=== PATIENT | male | born 1970 | race Caucasian/White ===

== ENCOUNTER 2019-10-19 00:42 | Observation (INO) | payer BC, OTHER, SELFPAY ==
[2019-10-19] VITALS (18 sets, daily range): BP systolic 103–144; BP diastolic 53–91; PULSE 78–115; RESP 15–25; TEMP 36.1–37.8; O2SAT 95–99; BMI 27.3
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
[2019-10-19] MEDS: SODIUM CHLORIDE 0.9% 1,000 ML 1000 ML IV (01:30)
[2019-10-19 01:43] LABS: Add Manual Diff / Slide Review NO; Basophils Absolute Auto 0 /uL (0-100); Basophils Percent Auto 0.2 % (0-2); Eosinophils Absolute Auto 0 /uL (0-450); Eosinophils Percent Auto 0.2 % (2-4); Hematocrit 50.2 % (41-53); Hemoglobin 17.2 g/dL (13.5-17.5); Lymphocytes Absolute Auto 1400 /uL (1100-4500); Lymphocytes Percent Auto 11.3 % (25-40); Mean Corpuscular HGB Conc 34.2 % (30-36); Mean Corpuscular Hemoglobin 31.4 PG (26-34); Mean Corpuscular Volume 91.8 fL (80-100); Monocytes Absolute Auto 700 /uL (0-900); Monocytes Percent Auto 5.8 % (3-14); Neutrophils Absolute Auto 10500 /uL (1500-7000); Neutrophils Percent Auto 82.5 % (50-75); Platelet Count 211 X10^3/uL (150-400); Red Blood Cell Count 5.47 X10^6/uL (4.5-5.9); Red Cell Distribution Width 12.8 % (11.6-14.8); White Blood Cell Count 12.7 X10^3/uL (4.5-11.0)
[2019-10-19 01:47] LABS: Prothrombin Time 11.4 SECONDS (10.1-12.7)
[2019-10-19 01:49] LABS: PTT Partial Thromboplastin Tim 33 SECONDS (26.4-36.2)
[2019-10-19 01:51] LABS: Alanine Aminotransferase 65 IU/L (<50); Albumin 4.7 g/dL (3.5-5.0); Albumin Globulin Ratio 1.5 (1.0-2.8); Alkaline Phosphatase 102 U/L (38-126); Aspartate Aminotransferase 78 IU/L (17-59); BUN Creatinine Ratio 12.8 (6-22); Bilirubin Total 0.5 mg/dL (0.2-1.3); Blood Urea Nitrogen 10 mg/dL (9-20); Calcium 9.1 mg/dL (8.4-10.2); Carbon Dioxide 17 mmol/L (22-32); Chloride 108 mmol/L (98-107); Creatine Kinase 913 U/L (55-170); Estimated Glomerular Filt Rate > 60.0 mL/min (>60); Globulin 3.1 g/dL (1.7-4.1); Glucose 99 mg/dL (70-100); HEMOLYSIS 18 (0-50); Potassium 4.2 mmol/L (3.4-5.1); Sodium 139 mmol/L (137-145); Total Protein 7.8 g/dL (6.3-8.2)
[2019-10-19 02:06] LABS: CKMB % Relative Index 0.6 % (1.5-5.0); Creatine Kinase MB 5.14 ng/mL (<2.37)
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
[2019-10-19 02:31] LABS: Troponin I 0.216 ng/mL (0.01-0.034)
[2019-10-19] MEDS: LACTATED RINGERS 1,000 ML 1000 ML IV (02:35)
[2019-10-19] MEDS: ASPIRIN 81 MG CHEW TAB 324 MG PO (02:52)
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
[2019-10-19 04:57] LABS: Troponin I 0.431 ng/mL (0.01-0.034)
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
[2019-10-19] MEDS: SODIUM CHLORIDE 0.9% 1,000 ML 75 ML IV (05:59)
[2019-10-19 06:30] LABS: COVID19 -Nasal RAPID Negative (Negative)
[2019-10-19] MEDS: ACETAMINOPHEN 325 MG TABLET 650 MG PO (06:36)
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
--- NOTE | 2019-10-19 10:18 | DI.ECHO.S_ITS ---
Echocardiogram Report + + :Name: SABAS PINEDA Study Date: 10/19/2019 Height: 69 in : :Hospital Weight: 185 lb : : Gender: Male BSA: 2.0 m2 : :: 1970 Age: 49 yrs BP: 144/84 mmHg: :Reason For Study: Elevated Troponin : :Ordering Physician: [place] : :Hospitalist Performed By: Delilah Kebede : :Referring: ELIE HE : + + Interpretation Summary The left ventricle is normal in size. The left ventricular ejection fraction is normal. Left ventricular wall motion is normal. Diastolic parameters suggest probable normal left ventricular diastolic function and normal filling pressures. The right ventricular systolic pressure is estimated to be at least 24 mmHg based on an estimated right atrial pressure of 3 mm Hg. No hemodynamically significant valvular abnormalities. No prior echocardiogram for comparison. Procedure: A two-dimensional transthoracic echocardiogram with color flow and Doppler was performed. The study quality was technically adequate. A contrast injection of Definity was performed to improve assessment of LV function. There is no prior echocardiogram noted for this patient. The patient was in normal sinus rhythm during the exam. Left Ventricle: The left ventricle is normal in size. Left ventricular wall thickness is at the upper limits of normal. There is no ventricular septal defect visualized. There is no thrombus. The ejection fraction is estimated to be 60-65%. The left ventricular ejection fraction is normal. Left ventricular wall motion is normal. Diastolic parameters suggest probable normal left ventricular diastolic function and normal filling pressures. Right Ventricle: The right ventricle is normal in size and function. Atria: Both atria are normal in size. There is no Doppler evidence for an interatrial shunt. Mitral Valve: The mitral valve is normal in structure and function. There is no mitral regurgitation noted. Aortic Valve: The aortic valve is normal in structure and function. No aortic regurgitation is present. Tricuspid Valve: The tricuspid valve is not well visualized, but is grossly normal. There is a trace or physiologic amount of tricuspid regurgitation. The right ventricular systolic pressure is estimated to be at least 24 mmHg based on an estimated right atrial pressure of 3 mm Hg. Pulmonic Valve: The pulmonic valve is not well visualized. Great Vessels: The aortic root is normal size. The ascending aorta is normal in size. The IVC is of normal diameter and collapses greater than 50% with a sniff. This suggests a low right atrial pressure of 3 mm Hg. Pericardium/ Pleura There is no pericardial effusion. MMode/2D Measurements & Calculations LVIDd: 4.4 cm LVOT diam: 2.2 cm LVIDs: 2.5 cm Ao root diam: 3.3 cm FS: 42.5 % asc Aorta Diam: 3.2 cm EPSS: 0.38 cm IVSd: 0.96 cm LVPWd: 0.95 cm LV aldridge. diameter/BSA (cm/m^2): 2.2 LV sys. diameter/BSA (cm/m^2): 1.3 LA A2 area: 19.2 cm2 RA long axis: 5.0 cm LA A4 area: 17.9 cm2 RA area: 15.3 cm2 LA length (vol): 5.3 cm RA vol: 39.7 ml LA vol: 55.5 ml RA : 19.8 ml/m2 LA vol index: 27.8 ml/m2 IVC diam: 2.0 cm RVD1 (basal): 3.6 cm TAPSE: 2.0 cm Doppler Measurements & Calculations Ao V2 max: 169.0 cm/sec LVOT Max Ti: 120.9 cm/sec Ao V2 mean: 124.1 cm/sec LV V1 max P.8 mmHg Ao max P.4 mmHg LV V1 VTI: 22.9 cm Ao mean P.6 mmHg GARY(I,D): 3.0 cm2 Ao V2 VTI: 28.6 cm GARY(V,D): 2.6 cm2 sev ratio: 0.80 GARY indexed to BSA (cm^2/m^2): 1.5 MV E max ti: 78.0 cm/sec TR max ti: 226.2 cm/sec MV A max ti: 70.0 cm/sec TR max P.5 mmHg MV E/A: 1.1 PA V2 max: 106.7 cm/sec Med Peak E' Ti: 8.8 cm/sec PA V2 mean: 75.2 cm/sec E/E' med: 8.9 PA mean P.5 mmHg Lat Peak E' Ti: 11.4 cm/sec PA Accel Time: 0.10 sec E/E' lat: 6.9 E/e' average: 7.9 MV dec time: 0.20 sec MV P1/2t: 58.0 msec MV P1/2t max ti: 78.5 cm/sec SV(LVOT): 84.7 ml MVA(P1/2t): 3.8 cm2 Electronically signed by: Trever Melendez M.D. on Reading Physician:10/19/2019 12:43 PM
[2019-10-19 12:05] LABS: Creatine Kinase 2089 U/L (55-170)
[2019-10-19 12:17] LABS: Troponin I 0.479 ng/mL (0.01-0.034)
[2019-10-19 12:44] LABS: CKMB % Relative Index 0.4 % (1.5-5.0); Creatine Kinase MB 8.56 ng/mL (<2.37)
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
--- NOTE | 2019-10-19 15:07 | PC.NURSE ---
AO x3 and making needs known with clear speech. Denies chest pain, pressure, palpitations. Reports generalized body aches have improved over the course of the day. Up to BR with SBA and steady gait. Plan is for one more set of cardiac enzymes and d/c home if stable. Pt aware of plan and family updated via telephone per pt request.
[2019-10-19 17:25] LABS: Troponin I 0.459 ng/mL (0.01-0.034)
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
--- NOTE | 2019-10-19 18:22 | PC.NURSE ---
1815- Patient DC instruction given. Patient and verbalize understanding. Patient IV out tele off. Patient stable at the time of discharge.
== END 2019-10-19 18:23 | disposition home or self-care (01) ==
LOC: ED 04:16 → AC 04:38 → ICU 05:47
PROVIDERS: Internal Medicine; Admitting Provider Nurse Practitioner Family; Emergency Provider Emergency Medicine; Referring Provider Emergency Medicine; Visit Provider Nurse Practitioner Family
DX: T68.XXXA Hypothermia, initial encounter (principal); X31.XXXA Exposure to excessive natural cold, initial encounter; V90.02XA Drowning and submersion due to fishing boat overturning, initial encounter; V94.89XA Other water transport accident, initial encounter; Y93.89 Activity, other specified; Y92.89 Other specified places as the place of occurrence of the external cause; R79.89 Other specified abnormal findings of blood chemistry; I10 Essential (primary) hypertension; E78.5 Hyperlipidemia, unspecified; Z11.59 Encounter for screening for other viral diseases
CPT/HCPCS: 36415; 71045; 80053; 82550; 82553; 84484; 85025; 85610; 85730; 87635; 87797; 93005; 93010; 93306; 96360; 96361; 99284; G0378; Q9957